=== PATIENT | female | born 2000 ===

== ENCOUNTER 2024-10-08 01:56 | Outpatient (CLI) | payer MEDICAID, SELFPAY ==
[2024-10-08 15:26] LABS: Panorama Kit Sent via Fed Ex
[2024-10-08 15:36] LABS: Abs Immature Grans 0.05 10^3/uL (0.0-0.06); Absolute Eosinophil Count 0.44 10^3/uL (0.0-0.7); Absolute Monocyte Count 0.55 10^3/uL (0.1-0.8); Basophils % 0.5 %; HCT 34.6 % (36.0-46.0); HGB 11.8 g/dL (11.2-15.7); Immature Grans % 0.5 %; MCHC 34.1 % (32.0-36.0); MCV 91 fL (80-95); MPV 10.5 fL (8.0-11.0); Platelet Count 265 10^3/uL (130-400); RBC 3.81 10^6/uL (3.93-5.22); RDW 12.9 % (11.7-14.6); RDW-SD 42.7 fL; WBC 11.05 10^3/uL (4.4-10.8)
[2024-10-08 15:40] LABS: Absolute Basophil Count 0.06 10^3/uL (0.0-0.2); Absolute Neutrophil Count 7.85 10^3/uL (1.2-6.7)
[2024-10-09 09:44] LABS: Rubella IgG Ab (UVM) Positive (See Note)
[2024-10-09 09:46] LABS: Varicella IgG Antibody Positive (See Note)
[2024-10-09 09:47] LABS: Hepatitis B Surface Ag Negative (Negative)
[2024-10-09 10:35] LABS: HIV-1/2 Ag & Ab Screen Negative (Negative)
[2024-10-09 10:48] LABS: Hepatitis C Ab w Rflx HCV PCR Negative (Negative)
[2024-10-10 22:01] LABS: Syphilis IgG w/Reflex Nonreactive (Nonreactive)
[2024-10-13 12:37] LABS: AFP 49.3 ng/mL; Cigarette smoking status non-Smoker; GA used in risk estimate Scan estimate; IVF Pregnancy No; Initial or repeat testing Initial testing; Insulin dependent diabetes No; Maternal Weight 114 lbs; Number of Fetuses 1; Physician Phone Number 802-748-7300; Prev Pregnancy w/NTD No; RECOMMENDED FOLLOW UP None.; Results Summary Normal risk
== END 2024-10-08 01:57 | disposition home or self-care (01) ==
LOC: LBO 01:56
PROVIDERS: Advanced Practice Midwife; Visit Provider Advanced Practice Midwife
DX: Z34.91 Encounter for supervision of normal pregnancy, unspecified, first trimester
CPT/HCPCS: 36415; 86787; 86803; 86850; 86900; 86901; 87340; 87389; 82105; 85025; 86762; 86780

== ENCOUNTER 2024-10-08 15:15 | Outpatient (REF) | payer MEDICAID, SELFPAY ==
[2024-10-10 11:09] LABS: Chlamydia Result Negative (Negative); GC Result Negative (Negative)
== END 2024-10-08 15:16 | disposition home or self-care (01) ==
LOC: LBN 15:15
PROVIDERS: Visit Provider Advanced Practice Midwife
DX: Z34.91 Encounter for supervision of normal pregnancy, unspecified, first trimester (principal)
CPT/HCPCS: 87491; 87591; 87086

== ENCOUNTER 2024-11-06 00:27 | Outpatient (CLI) | payer MEDICAID, SELFPAY ==
--- NOTE | 2024-11-06 07:30 | DI.US_ITS ---
Exam(s) US OB 2-3 TRIMESTER EXAM: US OB 2-3 TRIMESTER CLINICAL HISTORY: survey,h/o iugr,z34.90,20 wks. TECHNIQUE: Transabdominal obstetrical ultrasound was performed. COMPARISON: US POCUS EXAM from 08/06/2024 FINDINGS: There is a single viable intrauterine gestation with cardiac activity identified-138 bpm. Amniotic fluid: There is a normal amount of amniotic fluid. Placental location: The placenta is anterior grade 1,with no evidence of placenta previa.Distance fro m tip of placenta to the internal cervical os is 3.1 cm ANATOMY: A 3 vessel umbilical cord is seen. A four-chamber cardiac view was obtained. Right and left ventricular outflow tracts were imaged. There are no obvious abnormalities of the spinal column evident. There is no obvious abnormal ity of the anterior abdominal wall. stomach and urinary bladder are identified and there is no evidence of hydronephrosis. No abnormalities of the upper lip region are identified. No evidence of choroid plexus cysts i n the brain. Dating parameters place this at approximately 22 weeks and 1 day gestational age. BPD measures 22 weeks and 0 days HC measures 22 weeks and 2 days AC measures 23 weeks and 0 days FL measures 21 weeks and 3 days Estimated weight is 492 gm-1 pound, 1 ounce Fetus is at the greater than 97th percentile on the Hadlock scale. IMPRESSION:: Single viable intrauterine gestation which is approximately 22 weeks and 1 day gestatio nal age, implying an DRE of 03/11/2025. There are no obvious anomalies evident on today's study. Fetus is at greater than 97th percenti le on the Hadlock scale. The placenta is anterior with no evidence of placenta previa. There is a normal amount of amniotic fluid. DATA REPOSITORY:
== END 2024-11-06 00:47 ==
PROVIDERS: Visit Provider Advanced Practice Midwife
DX: Z34.92 Encounter for supervision of normal pregnancy, unspecified, second trimester (principal); Z3A.22 22 weeks gestation of pregnancy
CPT/HCPCS: 76805

== ENCOUNTER 2025-01-09 01:06 | Outpatient (CLI) | payer SELFPAY ==
[2025-01-09 12:46] LABS: HCT 34.9 % (36.0-46.0); HGB 11.7 g/dL (11.2-15.7); MCH 30.7 pg (27.0-33.0); MCHC 33.5 % (32.0-36.0); MCV 92 fL (80-95); MPV 10.6 fL (8.0-11.0); Platelet Count 265 10^3/uL (130-400); RBC 3.81 10^6/uL (3.93-5.22); RDW 13.0 % (11.7-14.6); RDW-SD 43.4 fL; WBC 11.07 10^3/uL (4.4-10.8)
[2025-01-09 13:11] LABS: Glucose,1 Hr (Glucola) 80 mg/dL (80-140)
== END 2025-01-09 01:07 | disposition home or self-care (01) ==
LOC: LBO 01:06
PROVIDERS: Visit Provider Advanced Practice Midwife
DX: Z34.93 Encounter for supervision of normal pregnancy, unspecified, third trimester (principal); O26.893 Other specified pregnancy related conditions, third trimester; Z67.91 Unspecified blood type, Rh negative
CPT/HCPCS: 36415; 82950; 85027; 86850; 90384

== ENCOUNTER 2025-02-26 11:25 | Outpatient (REF) | payer MEDICAID, SELFPAY | END 2025-02-26 11:26 | disposition home or self-care (01) | LOC: LBN 11:25 | PROVIDERS: Visit Provider Advanced Practice Midwife | DX: Z34.93 Encounter for supervision of normal pregnancy, unspecified, third trimester (principal) | CPT/HCPCS: 87081 ==

== ENCOUNTER 2025-03-03 16:05 | Outpatient (CLI) | payer MEDICAID, SELFPAY ==
--- NOTE | 2025-03-03 06:30 | DI.US_ITS ---
Exam(s) US OB ALLY WEIGHT EXAM: US OB ALLY WEIGHT CLINICAL HISTORY: hx IUGR,z87.59. TECHNIQUE: Transabdominal obstetrical ultrasound performed. COMPARISON: US POCUS EXAM from 08/06/2024 US US OB 2-3 TRIMESTER from 11/06/2024 FINDINGS:: Number of fetuses: 1 position: CEPHALIC Placental location: ANTERIOR No evidence of previa. BIOMETRIC DATA: BPD: 9.28cm, 37weeks 5days HC: 33.15cm, 37weeks 6days AC: 32.05cm, 36weeks FL: 7.06cm, 36weeks 1day EFW: 2,931.8g, 6lb 7.56oz, 37.2% Composite Age: 37weeks DRE: 03/24/2025 Heart Rate: 133bpm Amniotic fluid index: 9.94cm, lower normal range. IMPRESSION: size and weight are within the expected range. ALLY at low normal range. DATA REPOSITORY:
== END 2025-03-03 16:25 ==
LOC: DI 16:05
PROVIDERS: Visit Provider Advanced Practice Midwife
DX: O09.292 Supervision of pregnancy with other poor reproductive or obstetric history, second trimester; Z3A.20 20 weeks gestation of pregnancy
CPT/HCPCS: 76816

== ENCOUNTER 2025-03-12 21:38 | Inpatient (IN) | payer MEDICAID, SELFPAY ==
[2025-03-12] VITALS (8 sets, daily range): BP systolic 93–117; BP diastolic 59–69; PULSE 67–92; RESP 16; TEMP 36.6; O2SAT 98
--- NOTE | 2025-03-12 21:29 | HPE_ITS ---
Date of service: 03/12/25 Time of Service: 21:29 Assessment and Plan Assessment and plan (1) Spontaneous onset of labor: Status: Acute Assessment and plan: Admit to Center and routine admission labs. Comfort measures. Anticipate . OB-HPI Labor/Delivery History of Present Illness Reason for Visit: labor Chief Complaint: Uterine Contractions. DRE Calculator Estimated Delivery Date Method Current WG Current Estimate 03/23/25 Ultrasound #1 38w 3d Other Estimates 02/21/25 LMP (Certain) 42w 5d Comments: Marilynn has been having mild irregular contractions all day. They became stronger this evening and she presents in active labor. History of Present Expected Delivery Route/Plan - CNM FOB - Mateo (his first child) Mateo for labor support. BB- Vitaliy yes to circ Interested in trying the tub during labor GBS negative Specific Issues/Plan 1. RH negative, Rhogam 28wks- received. 01/09 2.. Known CF carrier - FOB testing ordered- not done, AFP=nml risk NTD 3. Hx IUGR, dx at 4%ile normal dopplers, improved to 14%ile, 38 wk IOL. 3a. 20wk EFW>90th. 37wk EFW=37th percentile, ALLY 10 4. Pap Due 2024, prefers to do 5. History of shoulder dystocia w/first , no sequelae Assessment: History Reviewed & Current Informed Consent Informed Consent: Risk,Benefits,Alternatives Discussed (AROM or expectant management) PFSH All Active Problems (Updated 03/12/25 @ 21:34 by Rita Gomes CNM) Spontaneous onset of labor (Acute) History of prior with IUGR (Acute) Rh negative state in antepartum period (Acute) (Acute) Cystic fibrosis carrier (Acute) Medical History (Updated 03/12/25 @ 21:34 by Rita Gomes CNM) 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 17, gets frequent bronchitis No pertinent past medical history Surgical History (Updated 07/23/24 @ 09:43 by Alesia Gonzalez NP) No pertinent past surgical history Family History (Updated 10/08/24 @ 14:34 by Rosetta Ugalde CNM) Maternal Grandfather Diabetes Maternal Grandmother Diabetes Paternal Grandfather Cancer Social History (Updated 04/09/25 @ 14:38 by Rosetta Ugalde CNM) Smoking/Tobacco Use Status: Never Smoking risk assessment performed?: Yes Alcohol Intake: former Drug use: Occasionally Substance use type: marijuana Counseling given: Yes Counseling provided: provider counseling Household members: significant other Housing: house Number of Children: 2 Education Level: high school 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, 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 Pets and animals: Yes Pets and animals: cat(s) and dog(s) Sexually active: Yes Do you think of yourself as: straight/heterosexual Current gender identity: female What is your relationship status?: How often do you talk on the phone with friends or family?: twice per week Panel score (0-1 are the most socially isolated patients): 0 What type of physical activity do you participate in: none Special bailey needs: No Agree to transfusion: Yes Firearms in home: No Do you feel safe at home: Yes Do you feel safe in your relationship?: Yes Female Reproductive History Menstrual control method: none History History 3 Para 2 Hx # Term Pregnancies 2 Multiple births 0 Hx # Pregnancies 0 Ectopic pregnancies 0 AB induced 0 Hx Number of Living Children 2 AB spontaneous 0 Past Pregnancies Del. Date GA/Weeks # Preg Succ Route Wgt Sex Labor Lgth Anesth esia Location [facility] 09/06/20 40 No Yes vaginal 6 lb 7 oz Female [facility] 02/02/22 38 No Yes vaginal 5 lb 15 oz Male [facility] Delivery Date: 09/06/20 Last Updated by: Rosetta Ugalde CNM [place], shoulder dystocia and episiotomy Delivery Date: 02/02/22 Last Updated by: Rosetta Ugalde CNM IOL IUGR 14%ile No complications [place] Meds Allergies and Home Medications Allergies Allergy/AdvReac Type Severity Reaction Status Date / Time amoxicillin Allergy Hives Verified 03/03/25 13:27 Penicillins Allergy Hives Verified 03/03/25 13:27 Home Medications ?Medication ?Instructions ?Recorded ?Confirmed ?Type vits no.126-ferrous fum tab PO 07/23/2403/03 History 28 mg iron-folic acid 800 mcg tablet (Classic ) Exam Physical Exam Vital signs: Temp Pulse Resp BP Pulse Ox 97.9 F 76 16 112/69 98 03/12/25 20:20 03/12/25 20:20 03/12/25 20:20 03/12/25 20:20 03/12/25 20:20 Vital Signs Reviewed: Yes Constitutional Constitutional: mild distress Detailed Labor and Delivery Exam Dilation: 5 Effacement (%): 100 station: +1 Cervix position: posterior Consistency: soft Sanders Score: Cervical Points Exam 0 1 2 3 Dilation Closed 1-2cm 3-4 cm 5-6cm Effacement 0-30% 40-50% 60-70% 80% Consistency Firm Medium Soft Station -3 -2 -1,0 +1,+2 Position Posterior Mid Anterior Amniotic Membrane Status: Intact Monitor Mode: External Contraction Frequency(min): every 2-3 Contraction Duration(sec): 60 Contraction Intensity: Moderate/Strong Fetus A Heart Rate Baseline: 130 Monitor Accelerations: 15 X 15 Monitor Decelerations: None Variability: Moderate (6-25 BPM) Presentation: Cephalic Categories: Category I Est. Weight: 6 lb 8 oz HEENT Exam HEENT Exam: Normal Respiratory Exam Respiratory Exam: Normal Cardiovascular Exam Cardiovascular Exam: Normal Abdominal Exam Abdominal Exam: Normal Exam Exam: Normal Extremities Exam Extremities Exam: Normal Skin Exam Skin Exam: Normal Psychiatric Exam Psychiatric Exam: Normal Risk Assessment Risk for Shoulder Dystocia Historical/Initial OB: POSITIVE FOR: Previous Shoulder Dystocia; NEGATIVE FOR: Pelvic Abnormality, Pre- BMI>30 or Previous Macrosomia 36 Weeks: NEGATIVE FOR: Current Gestational DM, EFW>4500gms or Maternal Weight Gain>40lbs 40 Weeks: NEGATIVE FOR: EFW> 4500 gms, Maternal Weight Gain >40lb or Post Dates Increased Risk?: No Risk for Pre-Eclampsia Yes, if one or more: NEGATIVE FOR: Hx Pre-E/Gest HTN, Chronic HTN, Multiple Gestation, Pre-gestational DM, Renal Disease, Systemic Lupus or APA Syndrome Yes, if 2 or more: NEGATIVE FOR: Nulliparity, Age>= 35 yrs, >10yr btwn pregnancies, BMI>30, ethinicty, Mother/Sister w/ Pre-E or Previous IUGR Risk for Post- Hemorrhage Initial: NEGATIVE FOR: Multiple Gestation, Previous PPH, Known Clotting Deficiency, Grand Multiparity or Anticoagulation 36 Weeks: NEGATIVE FOR: Anemia, hgb<10, Low platelets(thrombocytopenia), Gestational HTN or Pre-E, Polyhydraminios or EFW>4500gms 40 Weeks: NEGATIVE FOR: Anemia, hgb<10, Low platelets (thrombocytopenia), Gestation HTN or Pre-E, Polyhydraminios or EFW>4500gms At Risk?: No Risks Reviewed Risks Reviewed Upon Admission: Yes
[2025-03-12 21:53] LABS: HCT 35.1 % (36.0-46.0); HGB 11.9 g/dL (11.2-15.7); MCH 30.7 pg (27.0-33.0); MCHC 33.9 % (32.0-36.0); MCV 91 fL (80-95); MPV 11.1 fL (8.0-11.0); Platelet Count 267 10^3/uL (130-400); RBC 3.87 10^6/uL (3.93-5.22); RDW 12.9 % (11.7-14.6); RDW-SD 42.5 fL; WBC 13.89 10^3/uL (4.4-10.8)
[2025-03-12] MEDS: Hamamelis Leaf/Glycerin 100 EACH BOX PR (23:34)
[2025-03-12] MEDS: Dibucaine 1% 28 GM TUBE TP (23:34)
[2025-03-12] MEDS: Acetaminophen 325 MG TAB 650 MG PO (23:35)
[2025-03-12] MEDS: Ibuprofen 600 MG TAB PO (23:35)
[2025-03-13 00:06] VITALS: BP 98/50; PULSE 58
[2025-03-13 00:37] VITALS: BP 90/53; PULSE 67
[2025-03-13 01:13] VITALS: BP 106/52; PULSE 68
[2025-03-13 08:00] VITALS: BP 107/64; PULSE 60; RESP 12; TEMP 36.8
[2025-03-13 15:45] VITALS: BP 104/69; PULSE 70; RESP 16; TEMP 36.8; O2SAT 98
[2025-03-13] MEDS: Acetaminophen 325 MG TAB 650 MG PO ×2 (15:52→20:29)
[2025-03-13] MEDS: Docusate Sodium 100 MG CAP PO (15:52)
[2025-03-13] MEDS: Ibuprofen 600 MG TAB PO (15:53)
--- NOTE | 2025-03-13 18:16 | W.OBDELIVERY ---
Date of service: 03/13/25 Time of Service: 18:16 OB Labor/ Delivery Information Baby A Delivery Delivery Method: Spontaneaous Presentation: Cephalic Cephalic Position: Vertex Vertex Position: Right Occipital Anterior Cord Description-Baby A: 3 Vessels Cord Description Comment: tight nuchal cord Amniotic Fluid: Clear Quantitative Blood Loss: 150 Delivery Outcome: Liveborn Complications: none Infant Transferred: Remains with Mother Note: Marilynn used nitrous oxide for pain relief with good effect. She also used the shower. She began experiencing an urge tobear down and she returned to bed. FHTs 120s during first stage of labor. FHTs 110-120 in second stage. She progressed to full dilation and began pushing. A bulging bag of water appeared at the introitus and AROM performed for clear fluid. Second stage huddle was done. Spontaneous delivery of male delivered in PATRICIA position. A tight nuchal cord was encountered The baby was delivered using a somersault techmique and the cord was removed. Baby was placed on mother's abdomen and dried and stimulated. He had a spontaneous cry. Cord was clamped and cut by the baby's father . The placenta delivered spontaneously and appears to by intact with a three vessel cord. Pitocin 10 units IM was administered after delivery of the placenta. The perineum was inspected and was intact. The baby did breastfeed. After delivery, Mother and baby and father of the baby were stable and bonding well in the delivery room and there were no complications. Providers Nurse Farm Products Shipper: Rita Gomes Nurse: Hortencia Dumont Nurse: Kyleigh Hull Labor/Delivery Information Number of Babies in Womb: 1 Steroids Given: None Reason Steroids Not Administered: N/A Group Beta Strep: Negative Antibiotics Administered: No Rubella Status: Immune Blood Type: O- Varicella Immunity: Immune Shoulder Dystocia: No Stages of Labor Onset of Labor Date: 03/12/25 Onset of Labor Time: 00:00 Complete Dilatation Date: 03/12/25 Complete Dilatation Time: 22:00 Labor - Stage 1 Duration: 22 hours and 0 minutes ROM Baby A: 03/12/25 ROM Baby A: 22:21 ROM Total Time- Baby A: [id number] Delivery Date-Baby A: 03/12/25 Delivery Time-Baby A: 22:36 Labor Stage 2 Duration: 36 minutes Placenta Delivery Date-Baby A: 03/12/25 Placenta Delivery Time-Baby A: 22:41 Labor-Stage 3 Duration: 5 minutes Total Length of Labor-Baby A: 22 hours and 36 minutes Placenta Status: Delivered Baby A Infant Gender: Male Gestational Status: Early Term (37-38.6 wks) Gestational Age in Weeks/Days: 38 Weeks and 3 Days weight: 6 lb 12.644 oz Length-Baby A: 19.5 in Head Circumference-Baby A: 13 in Score-1 Minute Interval(Baby A) Heart Rate-1 minute: 100 BPM or Greater Respiratory Effort- 1 minute: Spontaneous/Strong Cry Muscle Tone-1 minute: Active Movement Reflex Response-1 minute: Prompt Response Color-1 minute: Bluish Hands or Feet Total Score-1 minute: 9 Score-5 Minute Interval(Baby A) Heart Rate- 5 minute: 100 BPM or Greater Respiratory Effort-5 minute: Spontaneous/Strong Cry Muscle Tone-5 minute: Active Movement Reflex Response-5 minute: Prompt Response Color-5 minute: [place]/No Cyanosis Total Score- 5 minute: 10
--- NOTE | 2025-03-13 18:20 | OBPPV_ITS ---
Date of service: 03/13/25 Time of Service: 18:20 Assessment and Plan Assessment and plan (1) Term of male : Status: Acute Assessment and plan: Caring for baby independently. Pain is managed well with oral analgesics. Voiding without difficulty. well. A - stable mother and baby , Post day 1 P - Discharge to home tomorrow . Routine post instructions. Follow up at [facility]. Subjective Subjective Interval history: Marilynn feels well and is caring for her baby independently. Patient comments: No complaints [place] baby status: Doing well and Nursing well feeding status: Exclusively breast feeding Exam Physical Exam Vital signs: Temp Pulse Resp BP Pulse Ox 98.2 F 70 16 104/69 98 03/13/25 15:45 03/13/25 15:45 03/13/25 15:45 03/13/25 15:45 03/13/25 15:45 Vital Signs Reviewed: Yes Constitutional Constitutional: no acute distress HEENT Exam HEENT Exam: Normal Respiratory Exam Respiratory Exam: Normal Cardiovascular Exam Cardiovascular Exam: Normal Fundal Exam Fundus: Below Umbilicus and Firm Extremities Exam Extremity Exam: Normal Skin Exam Skin Exam: Normal Psychiatric Exam Psychiatric Exam: Normal Results Hemoglobin/Hematocrit: Hgb 11.9 g/dL (11.2-15.7) 03/12/25 21:40 Hct 35.1 % (36.0-46.0) L 03/12/25 21:40 Abnormal Lab Findings: Abnormal Labs 03/12/25 21:40 WBC 13.89 H RBC 3.87 L Hct 35.1 L MPV 11.1 H
[2025-03-13 19:30] VITALS: BP 110/73; PULSE 55; RESP 16; TEMP 36.7; O2SAT 98
[2025-03-14] MEDS: Acetaminophen 325 MG TAB 650 MG PO (07:12)
[2025-03-14] MEDS: Ibuprofen 600 MG TAB PO (07:13)
[2025-03-14 08:00] VITALS: BP 110/74; PULSE 76; RESP 12; TEMP 37.1
--- NOTE | 2025-03-14 09:45 | W.PM.OBDISCH ---
Date of service: 03/14/25 Time of Service: 09:45 DS: Diagnosis Discharge Diagnosis (1) Term of male : Status: Acute Discharge Plan Disposition Patient Disposition: Home Condition: Good Discharge Details Reason For Visit: Labor Admit Date/Time: 03/12/25 21:38 Admit Provider: Rita Gomes Attending Provider: Rita Gomes Primary Care Provider: None,None Home Meds and New Rx's Prescriptions: New norethindrone (contraceptive) [Pallavi-BE] 0.35 mg tablet 0.35 mg PO DAILY Qty: 168 1RF No Action Classic 28 mg iron- 800 mcg tablet 1 tab PO Discharge Instructions Stand Alone Forms: BC Instructions, BC Post Vaginal Deliver Activity:: Activity as Tolerated Equipment/Supplies:: No Equipment Needed Diet:: Normal Diet Discharge Orders Discharge Orders: Discharge Order (Routine); Ordered 03/14/25 Ordered By: More Bowling OB:DS Summary Summary Vaginal Delivery Method: Spontaneaous Episiotomy Description: None Laceration Description: None Laceration Extension: N/A Contraception Discussed Contraception Discussed: No, Gender-Baby A: Male weight: 6 lb 12.644 oz Status at Discharge Functional status at discharge: independent ambulation Overall status at discharge: patient is progressing back to baseline Mental Status: mental status grossly normal Speech and Movement: speech and movement normal Mood: congruent mood Affect: normal affect Time Spent with Patient providing and/or coordinating discharge services: Less than 30 minutes Hospital Course Marilynn is a 24-year-old G3 now [id number] who was admitted in spontaneous labor at 38+3 on 03/12/25. She used Nitrous oxide to achieve an otherwise unmedicated, uncomplicated delivery of a baby kayla Burks weighing 6 lbs 12.6 oz over an intact perineum. APGARS 9/10. On day #2, she had obtained good pain control, was breast feeding without difficulty, lochia was WNL, and she was voiding normally. She was discharged home with prescription for POPs for control. Normal discharge teaching was done. Patient to follow-up in clinic at 2 and 6 weeks , to call with any questions or concerns in the meantime. Exam Physical Exam Vital signs: Temp Pulse Resp BP Pulse Ox 98.1 F 55 L 16 110/73 98 03/13/25 19:30 03/13/25 19:30 03/13/25 19:30 03/13/25 19:30 03/13/25 19:30 Vital Signs Reviewed: Yes Constitutional Constitutional: no acute distress HEENT Exam HEENT Exam: Normal Respiratory Exam Respiratory Exam: Normal Cardiovascular Exam Cardiovascular Exam: Normal Fundal Exam Fundus: Below Umbilicus Rectal Exam Rectal Exam: Not Done Extremities Exam Extremity Exam: Normal Psychiatric Exam Psychiatric Exam: Normal PFSH All Active Problems (Updated 03/13/25 @ 18:21 by Rita Gomes CNM) Term of male (Acute) Rh negative state in antepartum period (Acute) Cystic fibrosis carrier (Acute) Medical History (Updated 03/13/25 @ 18:21 by Rita Gomes CNM) 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 17, gets frequent bronchitis Surgical History (Updated 07/23/24 @ 09:43 by Alesia Gonzalez NP) No pertinent past surgical history Family History (Updated 10/08/24 @ 14:34 by Rosetta Ugalde CNM) Maternal Grandfather Diabetes Maternal Grandmother Diabetes Paternal Grandfather Cancer Social History (Updated 10/08/24 @ 14:38 by Rosetta Ugalde CNM) Smoking/Tobacco Use Status: Never Smoking risk assessment performed?: Yes Alcohol Intake: former Drug use: Occasionally Substance use type: marijuana Counseling given: Yes Counseling provided: provider counseling Household members: significant other Housing: house Number of Children: 2 Education Level: high school 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, 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 Pets and animals: Yes Pets and animals: cat(s) and dog(s) Sexually active: Yes Do you think of yourself as: straight/heterosexual Current gender identity: female What is your relationship status?: How often do you talk on the phone with friends or family?: twice per week Panel score (0-1 are the most socially isolated patients): 0 What type of physical activity do you participate in: none Special bailey needs: No Agree to transfusion: Yes Firearms in home: No Do you feel safe at home: Yes Do you feel safe in your relationship?: Yes Female Reproductive History Menstrual control method: none History History 3 Para 2 Hx # Term Pregnancies 3 Multiple births 0 Hx # Pregnancies 0 Ectopic pregnancies 0 AB induced 0 Hx Number of Living Children 3 AB spontaneous 0 Past Pregnancies Del. Date GA/Weeks # Preg Succ Route Wgt Sex Labor Lgth Anesthesia Location Prov Complic 09/06/20 40 No Yes vaginal 6 lb 7 oz Female local [facility] 02/02/22 38 No Yes vaginal 5 lb 15 oz Male [facility] 03/12/25 38 No Yes vaginal Male Rita Gomes Delivery Date: 09/06/20 Last Updated by: Rosetta Ugalde CNM [place], shoulder dystocia and episiotomy Delivery Date: 02/02/22 Last Updated by: Rosetta Ugalde CNM IOL IUGR 14%ile No complications [place] Delivery Date: 03/12/25 Last Updated by: More Bowling CNM Nitrous Oxide, uncomplicated DS: Data Vitals/I&O Vitals and I&O: Vital Signs Temperature 98.1 F 03/13/25 19:30 Temperature 97.9 F 03/12/25 20:36 Temperature Source Oral 03/13/25 19:30 Pulse 55 L 03/13/25 19:30 Pulse 76 03/12/25 20:36 Pulse Rhythm Regular 03/13/25 19:30 Respiratory Rate 16 03/13/25 19:30 Respiratory Depth Normal 03/12/25 21:31 Blood Pressure 110/73 03/13/25 19:30 Blood Pressure 112/69 03/12/25 20:36 Blood Pressure Mean 85 03/13/25 19:30 Pulse Oximetry 98 03/13/25 19:30 Oxygen Delivery Method Room Air 03/12/25 20:20 Oxygen Flow Rate 0 03/12/25 20:20 Pain Level 4 03/13/25 15:53 Intake & Output 03/13/25 03/13/25 03/14/25 11:59 23:59 11:59 Output Total 700 / 700 Balance -700 / -700 Output: Urine 550 / 550 Blood 150 / 150 Other: Urine Color Yellow
[2025-03-14] MEDS: RHO(D) Immune Globulin 1,500 UNIT Syringe 1500 UNIT IM (15:28)
== END 2025-03-14 10:20 | disposition home or self-care (01) | DRG 807 ==
LOC: BCD 21:38 → OBS 21:38
PROVIDERS: Admitting Provider Advanced Practice Midwife; Visit Provider Advanced Practice Midwife
DX: O69.1XX0 Labor and delivery complicated by cord around neck, with compression, not applicable or unspecified (principal); Z37.0 Single live birth; Z3A.38 38 weeks gestation of pregnancy; Z67.91 Unspecified blood type, Rh negative; Z14.1 Cystic fibrosis carrier
CPT/HCPCS: 85027; 85461; 86850; 86900; 86901; 90384; 86870; J2790